=== PATIENT | male | born 1945 | race Caucasian/White ===

== ENCOUNTER → 2023-05-09 08:16 | Day surgery (SDC) | payer BC, SELFPAY ==
[2023-05-07 16:20] VITALS: BMI 30.7
[2023-05-09] VITALS (10 sets, daily range): BP systolic 63–138; BP diastolic 32–85; PULSE 37–60; RESP 13–19; TEMP 36.4; O2SAT 96–100; BMI 30.9
[2023-05-09 09:16] LABS: Basophils Absolute Auto 0.1 K/mm3 (0.0-0.1); Basophils Percent Auto 0.9 % (0.2-1.2); Eosinophils Absolute Auto 0.6 K/mm3 (0-0.3); Eosinophils Percent Auto 9.1 % (0-4.4); Hematocrit 51.4 % (42.0-52.0); Immature Granulocyte Absolute 0.02 K/mm3 (0.00-0.031); Immature Granulocyte Percent A 0.3 % (0-0.5); Immature Platelet Fraction Pct 2.6 % (0.9-11.2); Lymphocytes Absolute Auto 2.45 K/mm3 (0.9-3.2); Lymphocytes Percent Auto 35.9 % (18.3-44.2); Mean Corpuscular HGB Conc 33.1 g/dl (32-36); Mean Corpuscular Hemoglobin 32.6 pg (26-34); Mean Corpuscular Volume 98.7 fl (80-100); Monocytes Absolute Auto 0.6 K/mm3 (0.1-0.6); Monocytes Percent Auto 9.4 % (2.6-8.5); Neutrophils Percent Auto 44.4 % (45.5-73.1); Platelet Count Result 147 k/mm3 (150-375); Red Blood Count 5.21 M/mm3 (4.6-6.20); Red Cell Distribution Width 12.8 % (11.5-14.5); White Blood Count 6.8 K/mm3 (4.5-10.0)
--- NOTE | 2023-05-09 09:23 | SUR.PREOP ---
Patient having complaint of feeling light headed and sweaty while drawing blood/IV start but unable to obtain access. Monitor turned on, heart rate low in the 30-40's and blood pressure low at 60/30's. Head of the bed placed flat and crash cart to bedside, pads placed on patient. [employer] called when heart rate 20-30's, bp cuff not reading and no IV access established yet. Patient remained conscious the entire time. Once IV access established, fluids hooked up. Dr. Lofton at bedside. No medication required after a few minutes of fluid. BP and heart rate improved. Procedure cancelled for today.
[2023-05-09 09:29] LABS: Anion Gap 10 mmol/L (8-16); Blood Urea Nitrogen 21 mg/dL (9-20); Calcium 8.7 mg/dL (8.4-10.2); Carbon Dioxide 23 mmol/L (22-30); Chloride 104 mmol/L (98-107); Estimated CRCL calculation 52 ml/min; Estimated Glomerular Filt Rate > 60; Glucose 127 mg/dL (65-110); Potassium 4.5 mmol/L (3.4-5.0); Sodium 137 mmol/L (137-145)
--- NOTE | 2023-05-09 11:38 | SUR.PREOP ---
Discharge order received from Dr. Lofton. Given permission to leave after office finished speaking with him. RN from office gave patient instructions for procedure in the future. Instructed patient to call in cases of emergency before discharge. Pt dressed on his own, denies dizziness and lightheadedness. Pt taken down to the front of the hospital in wheelchair.
== END | disposition home or self-care (01) ==
PROVIDERS: PCP Family Medicine; Visit Provider Internal Medicine
PROC: 4A023N7 Measurement of Cardiac Sampling and Pressure, Left Heart, Percutaneous Approach (ICD-10-PCS; CPT 93452; principal; 2023-05-09 10:00)
DX: R94.39 Abnormal result of other cardiovascular function study (principal); I95.9 Hypotension, unspecified; Z53.09 Procedure and treatment not carried out because of other contraindication
CPT/HCPCS: 36415; 80048; 85025; 85055; 99213; G0463; J7040